=== PATIENT | male | born 1960 | race Caucasian/White ===

== ENCOUNTER 2017-08-21 07:06 | Day surgery (SDC) | payer BC ==
[~2017-08-21] VITALS: Ht 172.7 cm; Wt 80.7 kg
[~2017-08-21 07:06] MED LIST: NORCO 5-325 TA1 EACH PO
[2017-08-21] MEDS ORDERED: FLOMAX0.4 MG PO (07:22)
[2017-08-21] MEDS ORDERED: MOBIC7.5 MG PO (07:22)
--- NOTE | 2017-08-21 08:29 | NUR ---
08/21/17 0829 Ofelia Ricardo 0892-PATIENT ARRIVED TO PACU ON 3L NC O2 SAT 97% WEANED TO RA O2 SAT 93% PATIENT REACTIVE OPENS EYES TO VERBAL STIMULI ABDOMEN SOFT. RR EVEN.
--- NOTE | 2017-08-21 12:40 | NUR ---
PT RESTING IN BED, HARD TO GET A STRAIGHT ANSWER FROM PT. TRYING TO JOKE ABOUT EVERYTHING, EXCEPT GOING FISHING IN [place]. S.O. IN WITH PT FOR SUPPORT, RN IN TO TAKE PT TO SCOPE. EXTENDED A BLESSING, WILL FOLLOW NEEDED
--- NOTE | 2017-08-22 07:54 | OR ---
[facility] [address] [facility] [place] [place] [address] Signed DATE OF OPERATION: 08/21/2017 SURGEON: Jorge Osuna MD PREOPERATIVE DIAGNOSIS: Screening. POSTOPERATIVE DIAGNOSES: 1. A 7 mm polyp opposite to ileocecal valve. 2. A 5 mm polyp at hepatic flexure. 3. Minimal internal hemorrhoids. PROCEDURE: Colonoscopy with hot biopsy. ESTIMATED BLOOD LOSS: None. INDICATIONS: Jaun is a 56-year-old gentleman, asked to see me for his initial screening colonoscopy. He has no lower GI complaints. There is no family history of colon cancer or polyps. In the office, I gave him a pamphlet on colonoscopy and we looked at that together along with the risks including, but not limited to, gas bloating, crampy abdominal pain, bleeding, perforation, requiring surgery, and missed diagnosis. We also discussed the need for IV conscious sedation. He had expressed understanding and wished to proceed. PROCEDURE NOTE: Jaun was taken into our endoscopy suite and placed in the left lateral decubitus position. He was given IV sedation with 5 mg of Versed and 150 mcg of fentanyl. A digital rectal exam was performed and this was unremarkable. His prostate was just starting to get some induration and enlargement. The adult colonoscope was then introduced and advanced all around into the cecum under direct visualization of camera without difficulty. His prep was good. The scope was slowly withdrawn. Opposite to the ileocecal valve, there was a 7 mm oblong sessile polyp. It was removed with several bites of the hot biopsy forceps. Back at the hepatic flexure, there was a smaller 5 mm polyp, which we removed with the help of hot biopsy forceps. The rest of the colon was unremarkable. The rectum was unremarkable. Upon retroflexion of the scope, there was some minimal to moderate internal hemorrhoid columns. After this, the gas was suctioned out and the colonoscope removed. Jaun tolerated the procedure quite well. Electronically Signed By: JORGE OSUNA MD 08/22/17 0754 PATIENT NAME: JAUN BRAUN OPERATIVE REPORT DATE OF : 60 REPORT #: [id number] PHYSICIAN: JORGE OSUNA MD PCP: GISELL BERG REPORT IS CONFIDENTIAL AND NOT TO BE RELEASED WITHOUT AUTHORIZATION [address] [place], [place] [address] Signed RECOMMENDATIONS: I will see Jaun back in my office in 7 to 14 days to review his results. MD ADRIAN Ames/MELANIEL /[id number] cc: ROMARIO Miguel MD Copies: GISELL BERG ANDREW L MD ~ Electronically Signed By: JORGE OSUNA MD 08/22/17 0754 PATIENT NAME: JAUN BRAUN OPERATIVE REPORT DATE OF : 60 REPORT #: [id number] PHYSICIAN: JORGE OSUNA MD PCP: GISELL BERG REPORT IS CONFIDENTIAL AND NOT TO BE RELEASED WITHOUT AUTHORIZATION
== END 2017-08-21 09:11 | disposition home or self-care (01) ==
LOC: OPS 07:06 → DS 07:06 → OPS 08:15
PROVIDERS: Colon & Rectal Surgery
PROC: 0DBL8ZZ Excision of Transverse Colon, Via Natural or Artificial Opening Endoscopic (ICD-10-PCS; 2017-08-21)
PROC: 0DBH8ZZ Excision of Cecum, Via Natural or Artificial Opening Endoscopic (ICD-10-PCS; principal; 2017-08-21 08:15)
DX: Z12.11 Encounter for screening for malignant neoplasm of colon (principal); D12.0 Benign neoplasm of cecum; D12.3 Benign neoplasm of transverse colon; N40.0 Benign prostatic hyperplasia without lower urinary tract symptoms; K64.8 Other hemorrhoids; Z79.1 Long term (current) use of non-steroidal anti-inflammatories (NSAID); Z79.899 Other long term (current) drug therapy
CPT/HCPCS: 99153; G0500; J2250; J3010; J7120

== ENCOUNTER 2019-10-03 06:25 | Day surgery (SDC) | payer BC ==
[~2019-10-03] VITALS: Ht 172.7 cm; Wt 81.7 kg
[~2019-10-03 06:25] MED LIST changes: +FLOMAX0.4 MG PO; +MOBIC7.5 MG PO
--- NOTE | 2019-10-03 07:54 | NUR ---
PT ALERT, ORIENTED AND SITTING UP IN BED. PT STATED HE HAS HAD TO WAIT FOR SURGERY BECAUSE OF COVID-19. HE SEEMS PREPARED, SHARED WITH ME THAT IF IN HIS WORDS "THINGS GO SOUTH" HE WANTS A RENTAL CAR DELIVERER TO PERFORM LAST RIGHTS FOR HIM AGREED TO FULFILL HIS WISH. GAVE BLESSING DEBRA ELIAS CAME IN TO GIVE PT HIS MEDS FOR SURGERY
--- NOTE | 2019-10-03 09:18 | NUR ---
10/03/19 0918 Rosanna Salazar 0902-PT ARRIVES TO PACU ON 6 L VIA MASK AND P\T RESPONSIVE TO VERBAL STIMULUS AND OPENS EYES BUT FALLS BACK ASLEEP AND DOES NOT ANSWER QUESTIONS. VSS. SATS >90%. 0915- AT BEDSIDE. PT ASKS QUESTIONS APPROPRIATELY. PT DENIES PAIN/NAUSEA. VSS.
--- NOTE | 2019-10-03 09:40 | NUR ---
PT WOULD LIKE PAIN MEDICATION GIVEN TO SPOUSE TO FILL WHILE RECOVERING. MD AWARE OF SITUATION. PT NOTIFIED VIA TELEPHONE. PT ARRIVES TO MAIN ENTRANCE OF HOSPITAL FOR DELIVERY, ABLE TO CONFIRM HER NAME AND PT NAME/SURGERY.
--- NOTE | 2019-10-03 09:50 | NUR ---
PT ARRIVES TO DS RM 5 FROM PACU A&O X3. PT DENIES ANY PAIN OR NAUSEA, ABLE TO TOLERATE PO WELL. PT ASKS ABOUT PAIN PRESCRIPTION. SCD'S IN PLACE. CALL LIGHT IN REACH. DC CRITERIA EXPLAINED.
--- NOTE | 2019-10-03 10:15 | NUR ---
PT LUNCH DELIVERED.
[2019-10-03] MEDS ORDERED: NORCO 5-325 TA1 EACH PO (10:17)
--- NOTE | 2019-10-03 11:37 | NUR ---
1105: PT TOLERATES LUNCH WELL, DENIES NAUSEA. NO PAIN AT THIS TIME. PT HAS URGE TO VOID, UP TO BATHROOM WITH RN ASSIST. PT DENIES ANY DIZZINESS OR NAUSEA WITH AMBULATION. PT ABLE TO VOID 275 MLS YELLOW URINE WITH NO PROBLEMS. PT BACK TO DS RM 5 TO GET DRESSED. SPOUSE NOTIFIED FOR SAFE RIDE HOME. 1115: IV REMOVED WNL. DC INSTRUCTIONS PRESENTED TO PT, PT VERBALIZES AN UNDERSTANDING. PT DC'S VIA WC TO SPOUSE PERSONAL VEHICLE AT MAIN ENTRANCE OF HOSPITAL TO HOME.
--- NOTE | 2019-10-07 09:29 | OR ---
[facility] [address] [place], [place] [address] Signed DATE OF OPERATION: 10/03/2019 SURGEON: Jorge Osuna MD PREOPERATIVE DIAGNOSIS: Moderate-sized reducible right inguinal hernia. POSTOPERATIVE DIAGNOSIS: Moderate-sized reducible right direct inguinal hernia. PROCEDURE: Right Valerie onlay mesh inguinal herniorrhaphy. ESTIMATED BLOOD LOSS: None. 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 He likes to do sit-ups and so forth to stay in shape. He had noticed bulging in the right groin. He had been to his primary care provider. He was then asked to see me as a local general surgeon. On exam, he had a moderate sized, but reducible right inguinal hernia. I gave Jaun our brochure on hernias. We looked at that carefully. He understands the nature of an inguinal hernia. He understands the difference between a primary suture repair and a mesh repair. He also understands expected intraop and postop course. I explained to Jaun there is risk including, but not limited to bleeding, infection, scarring, change in contour of the skin, damage to the nerves, ischemic orchitis, and recurrent hernias and chronic pain. He had expressed understanding and wished to proceed. DESCRIPTION OF PROCEDURE: I met with Jaun in our preop area. After answering his questions and marking the right groin, he was taken in the operating room. He was placed under general LMA anesthesia. He was given preoperative antibiotics along with subcutaneous heparin. SCDs were utilized. He was then prepped and draped in usual sterile fashion. After this, a standard oblique incision was made in the right groin and carried down through the tissue bluntly and with the cautery. The external oblique fascia was opened along its length and developed medially and laterally. The ilioinguinal iliohypogastric nerves were visualized and protected throughout the case. The cord structures were then elevated to the level of pubic tubercle with the help of a [place] drain. We realized Electronically Signed By: JORGE OSUNA MD 10/03/19 1126 Electronically Signed By: JORGE OSUNA MD 10/07/19 1027 PATIENT NAME: JAUN BRAUN OPERATIVE REPORT DATE OF : 60 REPORT #: [id number] PHYSICIAN: JORGE OSUNA MD PCP: GISELL VIGIL PA-C REPORT IS CONFIDENTIAL AND NOT TO BE RELEASED WITHOUT AUTHORIZATION [facility] [address] [place], [place] [address] Signed immediately he had a moderate sized, but reducible direct inguinal hernia stretching from the deep ring down to the pubic tubercle. There was no indirect component. The hernia was reduced and we imbricated the inguinal floor with the help of a running 2-0 PDS suture. We started at the pubic tubercle and carried that up to the level of deep ring. After this, we cut a piece of flat Prolene mesh to fit his groin and a slit was made in the mesh to accommodate the cord structures at the level of deep ring. This was held in place medially and laterally with the help of running #1 Prolene suture. We then injected local anesthetic in the entire operative field. The wound was irrigated and suctioned out until clear. We closed the external oblique over the repair with the help of a running 2-0 PDS suture. The Ira's fascia was then reapproximated running 3-0 Monocryl suture. The dermis was brought back together with interrupted 3-0 subcuticular Monocryl sutures. The skin edges were reapproximated with a running 5-0 fast absorbing plain gut suture. Dry gauze and tape were then applied. After this, Jaun was awakened from his anesthesia, extubated in the OR, and taken to the recovery room in stable condition. Jorge Osuna MD ALB/MODL /[id number] cc: ROMARIO Miguel MD Copies: GISELL VIGIL PA-C, ANDREW L MD ~ Electronically Signed By: JORGE OSUNA MD 10/03/19 1126 Electronically Signed By: JORGE OSUNA MD 10/07/19 1027 PATIENT NAME: JAUN BRAUN OPERATIVE REPORT DATE OF : 60 REPORT #: [id number] PHYSICIAN: JORGE OSUNA MD PCP: GISELL VIGIL PA-C REPORT IS CONFIDENTIAL AND NOT TO BE RELEASED WITHOUT AUTHORIZATION
== END 2019-10-03 11:20 | disposition home or self-care (01) ==
LOC: DS 06:25
PROVIDERS: Colon & Rectal Surgery
PROC: 0YU50JZ Supplement Right Inguinal Region with Synthetic Substitute, Open Approach (ICD-10-PCS; principal; 2019-10-03 06:45)
DX: K40.90 Unilateral inguinal hernia, without obstruction or gangrene, not specified as recurrent (principal)
CPT/HCPCS: C1781; J0690; J1100; J1644; J1885; J2250; J2405; J2704; J2765; J3010; J7121

== ENCOUNTER 2024-05-27 06:21 | Day surgery (SDC) | payer OTHER ==
[~2024-05-27] VITALS: Ht 172.7 cm; Wt 81.5 kg
[~2024-05-27 06:21] MED LIST changes: +MIDAZOLAM HCL 5 MG/5 ML VIAL IV PRN; +fentaNYL citrate 100 MCG/2 ML VIAL IV PRN
[2024-05-27 06:38] VITALS: BP 130/80
[2024-05-27] MEDS ORDERED: MIDAZOLAM HCL 5 MG/5 ML VIAL ONE (06:39)
[2024-05-27] MEDS ORDERED: fentaNYL citrate 100 MCG/2 ML VIAL ONE (06:39)
[2024-05-27] MEDS ORDERED: LACTATED RINGER'S 1,000 ML IV SCH (07:00)
[2024-05-27] MEDS ORDERED: LIDOCAINE HCL 1% 5 ML SDV INJ ONE (07:00)
[2024-05-27] MEDS ORDERED: IBLOOD GLUCOSE TEST STRIP 1 EA TEST VI PRN (07:00)
--- NOTE | 2024-05-27 07:52 | NUR ---
05/27/24 0752 Ofelia Ricardo 8463-PATIENT ARRIVED TO PACU ON 3L NC RR EVEN. PATIENT REACTIVE TO VERBAL STIMULI NOT FOLLOWING COMMANDS MOVES HEAD TO SIDE EYS CLOSED. ABDOMEN SOFT. IVF INFUSING.
[2024-05-27 09:13] VITALS: BP 101/76
--- NOTE | 2024-05-27 09:14 | NUR ---
0910 PT ARRIVED TO DAY SURGERY FROM PACU VIA STREACHER. POLICE DETENTION ATTENDANT BROUGHT PT BACK DUE TO PT VERY DROWSEY AND FALLS ASLEEP EASILY. REPORT TAKEN, IV ASSESSED VITALS TAKEN. PT RESTING IN BED WITH WATER AT BEDSIDE. AT BEDSIDE CALL LIGHT WITHIN REACH.
--- NOTE | 2024-05-27 09:49 | NUR ---
IN PT ROOM TO ASSESS LOC. PT IS A&O AND STATES NO NAUSEA, DIZZINESS, PAIN OR SOB AT THIS TIME. PT STATES READY TO GO HOME. PT GETTING DRESSED AT THIS TIME. IN ROOM. CALL LIGHT WITHIN REACH.
--- NOTE | 2024-05-27 09:55 | NUR ---
IN PT ROOM FOR ASSESSMENT, VS, AND DC EDUCATION. PT STATES VERBAL UNDERSTANDING TO DC EDUCATION AT THIS TIME. PT STATES NO FURTHER QUESTIONS. PT OFF OF UNIT VIA WC TO PASSENGER SIDE OF VEHICLE. ALL BELONGINGS IN PT POSSESSION. PT STATES NO FURTHER NEEDS AT THIS TIME.
[2024-05-27 09:57] VITALS: BP 109/73
--- NOTE | 2024-05-28 05:46 | OR ---
[facility] [address] [place], [place] [address] Signed DATE OF OPERATION: 05/27/2024 SURGEON: Jorge Osuna MD PREOPERATIVE DIAGNOSES: 1. Personal history of colonic polyps in 2018 at age 56. 2. Internal hemorrhoids. POSTOPERATIVE DIAGNOSIS: Minimal internal hemorrhoids. PROCEDURE: Colonoscopy without biopsy. ESTIMATED BLOOD LOSS: None. INDICATIONS: Jaun is a 63-year-old gentleman, asked to see me for a followup colonoscopy. I helped him with his initial screening colonoscopy in 2018 at the age of 56. He had two tubular adenomatous polyps removed less than 7 mm in diameter. He also had minimal internal hemorrhoid tissue. He had done well with 5 mg of Versed and 50 mcg of fentanyl. 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 He told me in the office, he has no lower GI complaints. There is no family history of colon cancer or polyps. I had given him a pamphlet on colonoscopy. He recalls the nature of the test. There is risk including, but not limited to gas bloating, crampy abdominal pain, bleeding, perforation requiring surgery, and missed diagnosis. We also reviewed the written instructions for a bowel prep line by line. It is the same bowel prep he took previously. He recalls the need for IV conscious sedation. His is usually available to take him home afterwards. He had expressed understanding and wished to proceed. PROCEDURE IN DETAIL: Jaun was taken into our endoscopy suite and placed in the left lateral decubitus position. He was given 5 mg of Versed and 100 mcg of fentanyl to cover the case. A digital rectal exam was performed. He had good sphincter tone. There were no external hemorrhoids. There were no masses. He has an indurated prostate gland. The adult colonoscope was introduced and advanced under direct visualization of the camera. We paused about fci through to give him some additional medication. The camera went quite nicely around into the cecum. His prep was quite excellent. We could easily see Electronically Signed By: JORGE OSUNA MD 05/28/24 0546 PATIENT NAME: JAUN BRAUN OPERATIVE REPORT DATE OF : 60 REPORT #: [id number] PHYSICIAN: JORGE OSUNA MD PCP: SHITAL MILES PA-C REPORT IS CONFIDENTIAL AND NOT TO BE RELEASED WITHOUT AUTHORIZATION [facility] [address] [place], [place] [address] Signed the appendiceal orifice and the ileocecal valve. The scope was then slowly withdrawn. We found no pathology throughout the entire colon or rectum. Upon retroflexion of the scope, he has minimal internal hemorrhoid tissue. After this, the gas was suctioned out and the colonoscope removed. Jaun tolerated the procedure quite well. RECOMMENDATIONS: Jaun can return in 5 years for repeat screening colonoscopy based on his personal history of an adenomatous polyp. MD ADRIAN Ames/MELANIEL /[id number] cc: MD Shital Ames PA-C Copies: JORGE OSUNA MD, CHLOE K PA-C ~ Electronically Signed By: JORGE OSUNA MD 05/28/24 0546 PATIENT NAME: JAUN BRAUN MARCO OPERATIVE REPORT DATE OF : 60 REPORT #: [id number] PHYSICIAN: JORGE OSUNA MD PCP: SHITAL MILES PA-C REPORT IS CONFIDENTIAL AND NOT TO BE RELEASED WITHOUT AUTHORIZATION
== END 2024-05-27 10:00 | disposition home or self-care (01) ==
LOC: DS 06:21 → OPS 06:21 → DS 10:30 → OPS 10:30
PROVIDERS: ATTEND Colon & Rectal Surgery
PROC: 0DJD8ZZ Inspection of Lower Intestinal Tract, Via Natural or Artificial Opening Endoscopic (ICD-10-PCS; principal; 2024-05-27 07:30)
DX: Z12.11 Encounter for screening for malignant neoplasm of colon (principal); K64.8 Other hemorrhoids; I10 Essential (primary) hypertension; E78.5 Hyperlipidemia, unspecified; M81.0 Age-related osteoporosis without current pathological fracture; N40.0 Benign prostatic hyperplasia without lower urinary tract symptoms; Z86.0101 Personal history of adenomatous and serrated colon polyps
CPT/HCPCS: 99153; G0500; J2250; J3010; J7121

== ENCOUNTER 2024-12-03 10:12 | Emergency (ER) | payer OTHER ==
[~2024-12-03] VITALS: Ht 172.7 cm; Wt 84.4 kg
[~2024-12-03 10:12] MED LIST changes: +AZITHROMYCIN250 MG PO; +BUDESONIDE-FO10.2 G1 INH; +LEVOFLOXACIN750 MG PO; +MAXI-TUSS AC L473 ML PO; -MIDAZOLAM HCL 5 MG/5 ML VIAL IV PRN; +PREDNISONE20 MG PO; -fentaNYL citrate 100 MCG/2 ML VIAL IV PRN
[2024-12-03 10:29] LABS: BASOPHILS 0.3 % (0.2-1.2); EOSINOPHILS 2.1 % (0.8-7.0); LYMPHOCYTES 25.2 % (21.8-53.1); MCH 32.4 PG (25.7-32.2); MCHC 34.6 g/dL (32.3-36.5); MCV 93.5 fL (79.0-92.2); MONOCYTES 11.0 % (5.3-12.2); NEUTROPHILS 61.1 % (34.0-67.9); RBC 4.91 M/uL (4.63-6.08)
[2024-12-03 10:53] LABS: ALT (SGPT) 26.0 U/L (14-59); AST (SGOT) 17.0 U/L (15-37); GLOMERULAR FILTRATION RATE,EST 81.0 mL/min (>60); PROTEIN, TOTAL 7.0 g/dL (6.4-8.2); UREA NITROGEN 14.0 mg/dL (7-18)
[2024-12-03 12:10] VITALS: BP 103/64
--- NOTE | 2024-12-03 13:00 | EKG ---
[facility] [address] [facility] [place] [address] Signed Normal sinus rhythm Normal ECG When compared with ECG of 21-OCT-2024 13:05, No significant change was found Confirmed by Eddie Santana DO ([id number]) on 12/03/2024 1:00:02 PM Electronically Signed By: EDDIE SANTANA DO 12/03/24 1300 PATIENT NAME: BEREKET BRAUN MARCO Electrocardiogram DATE OF : 60 PHYSICIAN: EDDIE SANTANA DO REPORT #: [id number] REPORT IS CONFIDENTIAL AND NOT TO BE RELEASED WITHOUT AUTHORIZATION
== END 2024-12-03 12:10 | disposition home or self-care (01) ==
LOC: ED 10:12
PROVIDERS: Emergency Medicine
DX: R05.3 Chronic cough (principal); R93.89 Abnormal findings on diagnostic imaging of other specified body structures
CPT/HCPCS: 36415; 71260; 80053; 83735; 83880; 84484; 85025; 93005; 93010; 99285; Q9967